=== PATIENT | male | born 1950 | race Caucasian/White ===

== ENCOUNTER → 2024-05-24 | Outpatient (CLI) | payer MEDICARE | LOC: LAB 16:50 → LAB SHORT 16:50 | DX: J45.901 Unspecified asthma with (acute) exacerbation (principal) | CPT/HCPCS: 87070; 87205 ==

== ENCOUNTER → 2024-07-02 | Outpatient (CLI) | payer OTHER | LOC: LAB 15:32 → LAB SHORT 15:32 | DX: J45.901 Unspecified asthma with (acute) exacerbation (principal) | CPT/HCPCS: 87070; 87205 ==